=== PATIENT | female | born 1965 | race Caucasian/White ===

== ENCOUNTER → 2020-09-07 | Outpatient (CLI) | payer BC ==
[~2020-09-07] MED LIST: ACETAMINOPHEN650 M5 PO; ALBUTEROL INH; ASMANEX0.135 GM INH; ASPIRIN EC81 M1 PO; ASPIRIN325 PO; AVELOX ABC PAC400 MG PO; CARVEDILOL6.25 MG PO; CRESTOR40 MG PO; EFFIENT10 MG PO; GILPIZIDE; LEVEMIR SUBQ; LIPITOR80 MG PO; LISINOPRIL40 MG PO; MICARDIS HCT 81 EACH PO; NITROGLYCERIN0.4 MG SUBLING; NOVOLOG100 UNIT/1; NOVOLOG100 UNIT/1 SUBQ; ORTHO-NOVUM1 EAC2 PO
== END ==
LOC: SJCVCIMAG 08:17
PROVIDERS: ATTEND Internal Medicine Cardiovascular Disease
DX: I25.10 Atherosclerotic heart disease of native coronary artery without angina pectoris (principal); E78.00 Pure hypercholesterolemia, unspecified; I10 Essential (primary) hypertension; E11.9 Type 2 diabetes mellitus without complications; E66.9 Obesity, unspecified; J45.909 Unspecified asthma, uncomplicated; Z88.0 Allergy status to penicillin; Z88.8 Allergy status to other drugs, medicaments and biological substances; Z79.82 Long term (current) use of aspirin; Z79.899 Other long term (current) drug therapy; Z72.89 Other problems related to lifestyle; Z87.891 Personal history of nicotine dependence